=== PATIENT | male | born 1975 | race African-American/Black ===

== ENCOUNTER 2016-11-16 18:49 | Emergency (ER) | payer OTHER | END 2016-11-16 20:26 | disposition home or self-care (01) | LOC: FER 18:49 | DX: J20.9 Acute bronchitis, unspecified (principal); F17.210 Nicotine dependence, cigarettes, uncomplicated | CPT/HCPCS: 71020; 87450; 87804; 87899; 99283 ==

== ENCOUNTER 2017-01-31 19:28 | Emergency (ER) | payer OTHER | END 2017-01-31 22:07 | disposition home or self-care (01) | LOC: FER 19:28 | DX: S86.911A Strain of unspecified muscle(s) and tendon(s) at lower leg level, right leg, initial encounter (principal); F17.210 Nicotine dependence, cigarettes, uncomplicated; X58.XXXA Exposure to other specified factors, initial encounter; Y92.002 Bathroom of unspecified non-institutional (private) residence as the place of occurrence of the external cause; Y99.8 Other external cause status | CPT/HCPCS: 73552; 73564; 99283 ==